=== PATIENT | male | born 2000 | race Caucasian/White ===

== ENCOUNTER → 2022-10-01 | Outpatient (CLI) | payer OTHER ==
[2022-10-01 17:22] LABS: HEMATOCRIT 47.1 % (36.0-47.0); HEMOGLOBIN 16.2 g/dl (12.5-16.1); MEAN CELL VOLUME 87 fl (80.0-95.0); MEAN CORPUSCULAR HEMOGLOBIN 30 pg (26-32); MEAN CORPUSCULAR HGB CONC 34 g/dl (33.0-37.0); MEAN PLATELET VOLUME 10.7 fl (7.4-10.4); PLATELET COUNT 249 K/mm3 (130-400); RED BLOOD COUNT 5.44 M/mm3 (4.20-5.60); REDCELL DISTRIBUTION WIDTH-CV 12.5 % (11.5-14.5)
[2022-10-01 17:58] LABS: ERYTHROCYTE SEDIMENTATION RATE 29 mm/hr (0-15)
[2022-10-01 17:59] LABS: BAND 24 % (0-10); LYMPHOCYTE 14 % (20.0-51.0); METAMYELOCYTE 3 % (0-0); NEUTROPHILS 50 % (42.0-75.2); PLATELET ESTIMATE NORMAL (NORMAL)
== END ==
LOC: COL.LAB 16:49
PROVIDERS: Nurse Practitioner Women's Health
DX: R50.9 Fever, unspecified (principal); Z90.81 Acquired absence of spleen